=== PATIENT | male | born 1990 | race African-American/Black ===

== ENCOUNTER 2016-06-21 05:23 | Emergency (ER) | payer OTHER ==
[~2016-06-21] VITALS: Ht 170.2 cm; Wt 77.0 kg
[~2016-06-21 05:23] MED LIST: ZOFR4TAB3 PO
[2016-06-21 05:24] VITALS: BP 121/76; PULSE 78; RESP 16; TEMP 97.7; O2SAT 98
[2016-06-21] MEDS ORDERED: SODIUM CHLOR 0.9% 1000 ML INJ 1,000 ML IV SCH (05:43)
[2016-06-21] MEDS ORDERED: ONDANSETRON HCL 4 MG/2 ML VIAL IVP ONE (05:45)
[2016-06-21] MEDS ORDERED: SODIUM CHLORIDE 0.9% FLUSH 5 ML FLUSH IVF PRN (05:45)
[2016-06-21] MEDS ORDERED: FAMOTIDINE 20 MG/2 ML VIAL IV PUSH ONE (05:45)
[2016-06-21] MEDS ORDERED: SODIUM CHLOR 0.9% 1000 ML INJ 1,000 ML IV ONE (05:45)
[2016-06-21] MEDS ORDERED: DICYCLOMINE HCL 10 MG CAP PO ONE (05:45)
[2016-06-21] MEDS ORDERED: BENT20TA PO (05:50)
[2016-06-21] MEDS ORDERED: ZOFR4TAB3 SL (05:50)
--- NOTE | 2016-06-21 05:51 | PD ---
HPI Chief Complaint: GI Complaint Time Seen by Provider: 05:39 Travel History International Travel<30 days: No Contact w/Intl Traveler<30days: No Traveled to known affect area: No History of Present Illness HPI Patient's 26-year-old male who presents to emergency room with complaints of nausea and vomiting. Patient reports that he woke up tonight and felt sick, reports that he vomited multiple times tonight, reports that he has been vomiting every 15 minutes. Patient denies diarrhea although he did have a normal bowel movement prior to arrival to the emergency room. Patient reports that he thinks that he may have gotten sick from the pizza that he ate earlier tonight, reports that his 2 friends had the same pizza, reports that they are fine and are asymptomatic. Patient denies any abdominal pain. Patient denies any fever or chills. Patient with no other complaints. PFSH Past Medical History Medical History: Denies Significant Hx Diminished Hearing: No Influenza Vaccination: No Past Surgical History Surgical History: No Previous Surgery Family History Family History: Negative Social History Alcohol Use: Yes (occ) Tobacco Use: Yes (1 PPD) Substance Use: No Allergies-Medications (Allergen,Severity, Reaction): Coded Allergies: Amoxicillin (Verified Allergy, Severe, 06/21/16) Reported Meds & Prescriptions Reported Meds & Active Scripts Active Zofran Odt (Ondansetron Odt) 4 Mg Tab 4 Mg SL Q6HR PRN Bentyl (Dicyclomine HCl) 20 Mg Tab 20 Mg PO QID 14 Days Review of Systems General / Constitutional: No: Fever Eyes: No: Visual changes HENT: No: Headaches Cardiovascular: No: Chest Pain or Discomfort Respiratory: No: Shortness of Breath Gastrointestinal: Positive: Nausea, Vomiting, No: Abdominal Pain Genitourinary: No: Dysuria Musculoskeletal: No: Pain Skin: No Rash Neurologic: No: Weakness Psychiatric: No: Depression Endocrine: No: Polydipsia Hematologic/Lymphatic: No: Easy Bruising Physical Exam Narrative GENERAL: No acute distress, nontoxic SKIN: Warm and dry. HEAD: Atraumatic. Normocephalic. EYES: Pupils equal and round. No scleral icterus. No injection or drainage. ENT: No nasal bleeding or discharge. Mucous membranes pink and moist. NECK: Trachea midline. No JVD. CARDIOVASCULAR: Regular rate and rhythm. No murmur appreciated. RESPIRATORY: No accessory muscle use. Clear to auscultation. Breath sounds equal bilaterally. GASTROINTESTINAL: Abdomen soft, non-tender, nondistended. Hepatic and splenic margins not palpable. MUSCULOSKELETAL: No obvious deformities. No clubbing. No cyanosis. No edema. NEUROLOGICAL: Awake and alert. No obvious cranial nerve deficits. Motor grossly within normal limits. Normal speech. PSYCHIATRIC: Appropriate mood and affect; insight and judgment normal. Data Data Last Documented VS Vital Signs Date Time Temp Pulse Resp B/P Pulse Ox O2 Delivery O2 Flow Rate FiO2 06/21/16 05:24 97.7 78 16 121/76 98 Room Air Orders Complete Blood Count With Diff (06/21/16 05:43) Comprehensive Metabolic Panel (06/21/16 05:43) Iv Access Insert/Monitor (06/21/16 05:43) Ondansetron Inj (Zofran Inj) (06/21/16 05:45) Sodium Chlor 0.9% 1000 Ml Inj (Ns 1000 M (06/21/16 05:43) Sodium Chloride 0.9% Flush (Ns Flush) (06/21/16 05:45) Famotidine Inj (Pepcid Inj) (06/21/16 05:45) Dicyclomine (Bentyl) (06/21/16 05:45) Sodium Chlor 0.9% 1000 Ml Inj (Ns 1000 M (06/21/16 05:45) Ondansetron Inj (Zofran Inj) (06/21/16 05:57) Labs Laboratory Tests Test 06/21/16 06:00 White Blood Count 11.2 TH/MM3 Red Blood Count 4.77 MIL/MM3 Hemoglobin 14.4 GM/DL Hematocrit 42.5 % Mean Corpuscular Volume 89.2 FL Mean Corpuscular Hemoglobin 30.2 PG Mean Corpuscular Hemoglobin 33.9 % Concent Red Cell Distribution Width 14.1 % Platelet Count 320 TH/MM3 Mean Platelet Volume 7.6 FL Neutrophils (%) (Auto) 61.0 % Lymphocytes (%) (Auto) 27.4 % Monocytes (%) (Auto) 7.4 % Eosinophils (%) (Auto) 3.7 % Basophils (%) (Auto) 0.5 % Neutrophils # (Auto) 6.8 TH/MM3 Lymphocytes # (Auto) 3.1 TH/MM3 Monocytes # (Auto) 0.8 TH/MM3 Eosinophils # (Auto) 0.4 TH/MM3 Basophils # (Auto) 0.1 TH/MM3 CBC Comment DIFF FINAL Differential Comment Sodium Level 142 MEQ/L Potassium Level 4.0 MEQ/L Chloride Level 108 MEQ/L Carbon Dioxide Level 25.4 MEQ/L Anion Gap 9 MEQ/L Blood Urea Nitrogen 16 MG/DL Creatinine 1.02 MG/DL Estimat Glomerular Filtration 108 ML/MIN Rate Random Glucose 92 MG/DL Calcium Level 9.0 MG/DL Total Bilirubin 0.4 MG/DL Aspartate Amino Transf 38 U/L (AST/SGOT) Alanine Aminotransferase 49 U/L (ALT/SGPT) Alkaline Phosphatase 82 U/L Total Protein 8.0 GM/DL Albumin 4.3 GM/DL MDM Medical Decision Making Medical Screen Exam Complete: Yes Emergency Medical Condition: Yes Interpretation(s) Vital Signs Date Time Temp Pulse Resp B/P Pulse Ox O2 Delivery O2 Flow Rate FiO2 06/21/16 05:24 97.7 78 16 121/76 98 Room Air Differential Diagnosis Gastritis, gastroenteritis, electrolyte abnormality, acute cholecystitis Narrative Course Patient is a 26-year-old male who presents to emergency room with complaints of nausea and vomiting. Patient reports that he ate pizza for dinner earlier tonight, reports that he went to bed and woke up feeling nauseous. Patient reports that he has been vomiting every 15 minutes, reports that he is unable to keep any fluids at this time. Patient denies diarrhea. Patient denies abdominal pain. Patient here for evaluation of nausea and vomiting. On evaluation, patient with no abdominal pain, abdomen is soft, nontender, nondistended, no peritoneal signs. Vital signs stable IV ordered, CBC, CMP ordered for further evaluation of symptoms. 2 L IV fluid, IV Zofran as well as by mouth Bentyl order for symptomatic relief. Patient reevaluated, patient reports that he is feeling much better, patient with complete resolution symptoms at this time. Patient tolerating oral fluids at this time. Abdomen is soft, nontender, no peritoneal signs. Signs and symptoms of when to return to emergency room reviewed with patient. Diagnosis Primary Impression: Nausea & vomiting Qualified Code: R11.2 - Nausea and vomiting, intractability of vomiting not specified, unspecified vomiting type Patient Instructions: General Instructions Additional Instructions: Please return to ER as needed Please follow-up with your primary care doctor Eat a bland diet, make sure that you drink plenty of fluids and maintain hydration Med/Other Pt SpecificInfo: Prescription(s) given Scripts Ondansetron Odt (Zofran Odt)4 Mg Tab4 Mg SL Q6HR PRN (Nausea/Vomiting) #30 TAB Ref 0 Prov:Dilcia Ashley DO 06/21/16 Dicyclomine (Bentyl)20 Mg Tab20 Mg PO QID 14 Days Ref 0 Prov:Dilcia Ashley DO 06/21/16 Disposition: 01 DISCHARGE HOME Condition: Stable Dilcia Ashley DO Jun 21, 2016 05:51
[2016-06-21] MEDS ORDERED: ONDANSETRON HCL 4 MG/2 ML VIAL ONE (05:57)
[2016-06-21 06:14] LABS: AUTOMATED NEUTROPHIL # 6.8 TH/MM3 (1.8-7.7); BASOPHIL # 0.1 TH/MM3 (0-0.2); BASOPHIL % 0.5 % (0.0-2.0); EOSINOPHIL # 0.4 TH/MM3 (0-0.4); EOSINOPHIL % 3.7 % (0.0-4.0); HEMATOCRIT 42.5 % (39.0-51.0); HEMO FLAGS DIFF FINAL; LYMPH % 27.4 % (9.0-44.0); LYMPHOCYTE # 3.1 TH/MM3 (1.0-4.8); MEAN CELL VOLUME 89.2 FL (80.0-100.0); MEAN CORPUSCULAR HEMOGLOBIN 30.2 PG (27.0-34.0); MEAN CORPUSCULAR HGB CONC 33.9 % (32.0-36.0); MONO % 7.4 % (0.0-8.0); PLATELET COUNT 320 TH/MM3 (150-450); RED BLOOD COUNT 4.77 MIL/MM3 (4.50-5.90); RED CELL DISTRIBUTION WIDTH 14.1 % (11.6-17.2); WHITE BLOOD COUNT 11.2 TH/MM3 (4.0-11.0)
[2016-06-21 06:36] LABS: ALKALINE PHOSPHATASE 82 U/L (45-117); TOTAL BILIRUBIN ADULT 0.4 MG/DL (0.2-1.0)
[2016-06-21 06:41] LABS: ALT (GPT) 49 U/L (12-78); ANION GAP 9 MEQ/L (5-15); AST (GOT) 38 U/L (15-37); BICARBONATE 25.4 MEQ/L (21.0-32.0); BLOOD UREA NITROGEN 16 MG/DL (7-18); CHLORIDE 108 MEQ/L (98-107); GLOMERULAR FILTRATION RATE 108 ML/MIN (>89); SODIUM (NA) 142 MEQ/L (136-145)
[2016-06-21 06:57] VITALS: BP 132/82; PULSE 75; RESP 18; O2SAT 98
== END 2016-06-21 06:59 | disposition home or self-care (01) ==
LOC: NEPE 05:23
DX: R11.2 Nausea with vomiting, unspecified (principal); F17.210 Nicotine dependence, cigarettes, uncomplicated
CPT/HCPCS: 80053; 85025; 96361; 96374; 96375; 99284; J2405; J7030

== ENCOUNTER 2016-08-17 21:06 | Emergency (ER) | payer OTHER ==
[~2016-08-17 21:06] MED LIST changes: +BENT20TA PO; -ZOFR4TAB3 PO; +ZOFR4TAB3 SL
[2016-08-17 21:09] VITALS: BP 121/73; PULSE 74; RESP 16; TEMP 97.9; O2SAT 96
== END 2016-08-17 22:02 | disposition left against medical advice (07) ==
LOC: NED 21:06
DX: K08.9 Disorder of teeth and supporting structures, unspecified (principal)
CPT/HCPCS: 99281

== ENCOUNTER 2016-08-19 01:24 | Emergency (ER) | payer OTHER ==
[~2016-08-19] VITALS: Ht 167.6 cm; Wt 70.0 kg
[2016-08-19 01:25] VITALS: BP 122/66; PULSE 64; RESP 16; TEMP 97.6; O2SAT 97
--- NOTE | 2016-08-19 02:05 | PD ---
HPI Chief Complaint: Oral / Dental Pain or Problem Time Seen by Provider: 01:59 Travel History International Travel<30 days: No Contact w/Intl Traveler<30days: No Traveled to known affect area: No History of Present Illness HPI 26-year-old black male presents to emergency department with complaints of right upper maxillary dental pain. He states that this is been bothering him now for the last several days. He states the pain radiates around his maxilla to the front dentition. No trauma. No fever chills. He is taking Orajel and ibuprofen without relief. He denies any facial swelling. No difficulty swallowing. Pain is mild. Worse with cold. PFSH Past Medical History Medical History: Denies Significant Hx Diminished Hearing: No Tetanus Vaccination: < 5 Years Past Surgical History Surgical History: No Previous Surgery Social History Alcohol Use: Yes (occ) Tobacco Use: Yes (1 PPD) Substance Use: No Allergies-Medications (Allergen,Severity, Reaction): Coded Allergies: Amoxicillin (Verified Allergy, Severe, 06/21/16) Reported Meds & Prescriptions Reported Meds & Active Scripts Active Zofran Odt (Ondansetron Odt) 4 Mg Tab 4 Mg SL Q6HR PRN Bentyl (Dicyclomine HCl) 20 Mg Tab 20 Mg PO QID 14 Days Review of Systems Except as stated in HPI: all other systems reviewed are Neg Physical Exam Narrative GENERAL: Well-developed, well-nourished in no acute distress. Nontoxic appearing. HEAD: Normocephalic, atraumatic. EYES: Pupils equal round and reactive. Extraocular motions intact. No scleral icterus. No injection or drainage. ENT: TMs clear without erythema. The external auditory canals clear. Nose: clear . Posterior pharynx is pink and moist. No tonsillar edema or exudate. Uvula midline. Airway patent. I see no obvious dental carry in his right upper maxillary teeth. He does have a large dental carry in tooth #31. NECK: Trachea midline.Supple, nontender, moves head freely. No central bony tenderness or spasm. CARDIOVASCULAR: Regular rate and rhythm without murmurs, gallops, or rubs. RESPIRATORY: Clear to auscultation. Breath sounds equal bilaterally. No wheezes , rales, or rhonchi. GASTROINTESTINAL: Abdomen soft, non-tender, nondistended. No hepato-splenomegaly , or palpable masses. No guarding. EXTREMITIES: No clubbing, cyanosis, or edema. No joint tenderness, effusion, or edema noted. BACK: Nontender without deformity or crepitance. No flank tenderness. Data Data Last Documented VS Vital Signs Date Time Temp Pulse Resp B/P Pulse Ox O2 Delivery O2 Flow Rate FiO2 08/19/16 01:25 97.6 64 16 122/66 97 Room Air MDM Medical Decision Making Medical Screen Exam Complete: Yes Emergency Medical Condition: Yes Medical Record Reviewed: Yes Differential Diagnosis MDM: Moderate Differential diagnoses: Dental abscess, dental caries, osteitis, cellulitis Narrative Course This is dentalgia Patient given clindamycin 300 mg by mouth. Diagnosis Primary Impression: Dentalgia Patient Instructions: General Instructions Additional Instructions: Rest. [place] gargles. [place] oil on cotton balls. 3 Advil every 6 hours. Clindamycin follow-up with a dentist as soon as possible. And return to the ER if any problems. Med/Other Pt SpecificInfo: Prescription(s) given Disposition: 01 DISCHARGE HOME Condition: Stable Ricardo Lackey Aug 19, 2016 02:05
[2016-08-19] MEDS ORDERED: CLIN150 PO (02:06)
[2016-08-19] MEDS ORDERED: CLINDAMYCIN 150 MG CAP PO ONE (02:15)
== END 2016-08-19 02:24 | disposition home or self-care (01) ==
LOC: NEPB 01:24
DX: K08.89 Other specified disorders of teeth and supporting structures (principal); F17.210 Nicotine dependence, cigarettes, uncomplicated
CPT/HCPCS: 99282

== ENCOUNTER 2016-10-03 15:21 | Emergency (ER) | payer OTHER ==
[~2016-10-03] VITALS: Ht 172.7 cm; Wt 72.7 kg
[~2016-10-03 15:21] MED LIST changes: +CLIN150 PO
[2016-10-03 15:22] VITALS: BP 130/86; PULSE 76; RESP 24; TEMP 97.7; O2SAT 99
--- NOTE | 2016-10-03 15:45 | PD ---
Physical Exam Date Seen by Provider: Oct 03, 2016 Time Seen by Provider: 15:42 Narrative 26 y/o male presents with epigastric pain and nausea/vomiting with blood noted in emesis. Pain is 8/10. Denies ETOH. Recently was taking large amounts Ibuprofen for tooth problem up to last week. Denies fever or urinary symp[toms. V/S Stable Waiting bed placement. Data Data Last Documented VS Vital Signs Date Time Temp Pulse Resp B/P Pulse Ox O2 Delivery O2 Flow Rate FiO2 10/03/16 15:22 97.7 76 24 130/86 99 Room Air [facility] Medical Record Reviewed: Yes Supervised Visit with AGUSTINA: Yes Condition: Stable Ryan Hung Oct 03, 2016 15:45
[2016-10-03] MEDS ORDERED: SODIUM CHLOR 0.9% 1000 ML INJ 1,000 ML IV SCH (15:50)
--- NOTE | 2016-10-03 15:58 | PD ---
HPI Chief Complaint: Abdominal Pain Time Seen by Provider: 15:46 Travel History International Travel<30 days: No Contact w/Intl Traveler<30days: No Traveled to known affect area: No History of Present Illness HPI patient 26-year-old male presents emergency department with nausea vomiting in the epigastric region. Patient states she's had a toothache recently is been taking a lot of ibuprofen. Patient became alarmed when he started seeing that his emesis now started to have some blood streaking in it. He denies any history of alcohol drug abuse. He does state that he is a smoker. States never happened him before. He does have some sharp epigastric pain which is waxing and waning states is very bad when he throws up. PFSH Past Medical History Diminished Hearing: No Social History Alcohol Use: Yes (occ) Tobacco Use: Yes (1 PPD) Substance Use: No Allergies-Medications (Allergen,Severity, Reaction): Coded Allergies: Amoxicillin (Verified Allergy, Severe, 10/03/16) Reported Meds & Prescriptions Reported Meds & Active Scripts Active Zofran Odt (Ondansetron Odt) 4 Mg Tab 4 Mg SL Q6HR PRN Phenergan (Promethazine HCl) 25 Mg Tab 25 Mg PO Q6H PRN Protonix (Pantoprazole Sodium) 40 Mg Tab 40 Mg PO DAILY Review of Systems Except as stated in HPI: all other systems reviewed are Neg Physical Exam Narrative GENERAL: Well-developed well-nourished, appears uncomfortable. SKIN: Warm and dry. HEAD: Atraumatic. Normocephalic. EYES: Pupils equal and round. No scleral icterus. No injection or drainage. ENT: No nasal bleeding or discharge. Mucous membranes pink and moist. NECK: Trachea midline. No JVD. CARDIOVASCULAR: Regular rate and rhythm. RESPIRATORY: No accessory muscle use. Clear to auscultation. Breath sounds equal bilaterally. GASTROINTESTINAL: Abdomen soft, minimally tender in the epigastric region, nondistended. Hepatic and splenic margins not palpable. Voluntary guarding without involuntary guarding. No percussive tenderness. Normal active bowel sounds. MUSCULOSKELETAL: Extremities without clubbing, cyanosis, or edema. No obvious deformities. NEUROLOGICAL: Awake and alert. No obvious cranial nerve deficits. Motor grossly within normal limits. Five out of 5 muscle strength in the arms and legs. Normal speech. PSYCHIATRIC: Appropriate mood and affect; insight and judgment normal. Data Data Last Documented VS Vital Signs Date Time Temp Pulse Resp B/P Pulse Ox O2 Delivery O2 Flow Rate FiO2 10/03/16 16:13 99 10/03/16 15:22 97.7 76 24 130/86 Room Air Orders Complete Blood Count With Diff (10/03/16 15:50) Comprehensive Metabolic Panel (10/03/16 15:50) Lipase (10/03/16 15:50) Prothrombin Time / Inr (Pt) (10/03/16 15:50) Act Partial Throm Time (Ptt) (10/03/16 15:50) Ct Abd/Pel W Iv Contrast(Rout) (10/03/16 15:50) Iv Access Insert/Monitor (10/03/16 15:50) Ecg Monitoring (10/03/16 15:50) Oximetry (10/03/16 15:50) Morphine Inj (Morphine Inj) (10/03/16 16:00) Ondansetron Inj (Zofran Inj) (10/03/16 16:00) Sodium Chlor 0.9% 1000 Ml Inj (Ns 1000 M (10/03/16 15:50) Sodium Chloride 0.9% Flush (Ns Flush) (10/03/16 16:00) Iohexol 350 Inj (Omnipaque 350 Inj) (10/03/16 16:31) Pantoprazole Inj (Protonix Inj) (10/03/16 17:00) Metoclopramide Inj (Reglan Inj) (10/03/16 17:00) Labs Laboratory Tests Test 10/03/16 16:00 White Blood Count 10.7 TH/MM3 Red Blood Count 4.89 MIL/MM3 Hemoglobin 14.7 GM/DL Hematocrit 43.0 % Mean Corpuscular Volume 87.9 FL Mean Corpuscular Hemoglobin 30.2 PG Mean Corpuscular Hemoglobin 34.3 % Concent Red Cell Distribution Width 14.1 % Platelet Count 362 TH/MM3 Mean Platelet Volume 7.5 FL Neutrophils (%) (Auto) 68.8 % Lymphocytes (%) (Auto) 25.2 % Monocytes (%) (Auto) 4.9 % Eosinophils (%) (Auto) 0.8 % Basophils (%) (Auto) 0.3 % Neutrophils # (Auto) 7.4 TH/MM3 Lymphocytes # (Auto) 2.7 TH/MM3 Monocytes # (Auto) 0.5 TH/MM3 Eosinophils # (Auto) 0.1 TH/MM3 Basophils # (Auto) 0.0 TH/MM3 CBC Comment DIFF FINAL Differential Comment Prothrombin Time 11.4 SEC Prothromb Time International 1.0 RATIO Ratio Activated Partial 23.8 SEC Thromboplast Time Sodium Level 143 MEQ/L Potassium Level 4.1 MEQ/L Chloride Level 106 MEQ/L Carbon Dioxide Level 22.7 MEQ/L Anion Gap 14 MEQ/L Blood Urea Nitrogen 15 MG/DL Creatinine 1.05 MG/DL Estimat Glomerular Filtration 104 ML/MIN Rate Random Glucose 79 MG/DL Calcium Level 9.8 MG/DL Total Bilirubin 0.5 MG/DL Aspartate Amino Transf 29 U/L (AST/SGOT) Alanine Aminotransferase 43 U/L (ALT/SGPT) Alkaline Phosphatase 73 U/L Total Protein 8.4 GM/DL Albumin 4.7 GM/DL Lipase 121 U/L [facility] Medical Decision Making Medical Screen Exam Complete: Yes Emergency Medical Condition: Yes Differential Diagnosis NSAID gastritis, Dana-Johnson tear, esophageal bleeding unlikely, gastritis, gastroenteritis. Narrative Course Patient roomed in the emergency department, 20-gauge right before meals was started by myself returned nonpulsatile dark red blood. Patient was given fluids Zofran ultimately some Reglan as well as protonic's. Patient states he was feeling much better after these interventions. Discussed with him needs to cut back on the amount of ibuprofen he is taking. Discussed if his symptoms are not improving he needs to follow up with expediter in his primary care physician. He states he is no longer taking ibuprofen as his teeth are no longer hurting him. His labs are reassuring and he is stable for discharge. Diagnosis Primary Impression: Epigastric pain Additional Impression: Gastritis due to nonsteroidal anti-inflammatory drug Referrals: Cammy Salazar MD Med/Other Pt SpecificInfo: Prescription(s) given Scripts Ondansetron Odt (Zofran Odt)4 Mg Tab4 Mg SL Q6HR PRN (Nausea/Vomiting) #30 TAB Ref 0 Prov:Devaughn Guzman MD 10/03/16 Promethazine (Phenergan)25 Mg Tab25 Mg PO Q6H PRN (Nausea/Vomiting) #20 TAB Ref 0 Prov:Devaughn Guzman MD 4/22/17 Pantoprazole (Protonix)40 Mg Tab40 Mg PO DAILY #30 TAB Ref 0 Prov:Devaughn Guzman MD 10/03/16 Disposition: 01 DISCHARGE HOME Condition: Stable Devaughn Guzman MD Oct 03, 2016 15:58
[2016-10-03] MEDS ORDERED: SODIUM CHLORIDE 0.9% FLUSH 10 ML FLUSH IV FLUSH PRN (16:00)
[2016-10-03] MEDS ORDERED: ONDANSETRON HCL 4 MG/2 ML VIAL IVP ONE (16:00)
[2016-10-03] MEDS ORDERED: MORPHINE SULFATE 4 MG/ML INJ IV PUSH ONE (16:00)
[2016-10-03 16:13] VITALS: O2SAT 99
[2016-10-03] MEDS ORDERED: IOHEXOL 350 MG/ML 10 ML VIAL (for RAD DIAG) IV ONE (16:31)
[2016-10-03 16:38] LABS: AUTOMATED NEUTROPHIL # 7.4 TH/MM3 (1.8-7.7); BASOPHIL % 0.3 % (0.0-2.0); EOSINOPHIL # 0.1 TH/MM3 (0-0.4); EOSINOPHIL % 0.8 % (0.0-4.0); HEMO FLAGS DIFF FINAL; LYMPH % 25.2 % (9.0-44.0); LYMPHOCYTE # 2.7 TH/MM3 (1.0-4.8); MEAN CELL VOLUME 87.9 FL (80.0-100.0); MEAN CORPUSCULAR HEMOGLOBIN 30.2 PG (27.0-34.0); MEAN CORPUSCULAR HGB CONC 34.3 % (32.0-36.0); MONO % 4.9 % (0.0-8.0); NEUT % 68.8 % (16.0-70.0); PLATELET COUNT 362 TH/MM3 (150-450); RED BLOOD COUNT 4.89 MIL/MM3 (4.50-5.90); RED CELL DISTRIBUTION WIDTH 14.1 % (11.6-17.2); WHITE BLOOD COUNT 10.7 TH/MM3 (4.0-11.0)
[2016-10-03 16:47] LABS: APTT (PATIENT) 23.8 SEC (24.3-30.1); PROTHROMBIN TIME - PATIENT 11.4 SEC (9.8-11.6)
--- NOTE | 2016-10-03 16:47 | RADRPT ---
EXAM DATE/TIME: 10/03/2016 16:20 [place] COMPARISON: No previous studies available for comparison. INDICATIONS : Abdomen pain. IV CONTRAST: 100 cc Omnipaque 350 (iohexol) IV ORAL CONTRAST: No oral contrast ingested. RADIATION DOSE: 9.96 CTDIvol (mGy) MEDICAL HISTORY : None SURGICAL HISTORY : None. ENCOUNTER: Initial ACUITY: 1 day PAIN SCALE: 5/10 LOCATION: Bilateral abdomen. TECHNIQUE: Volumetric scanning of the abdomen and pelvis was performed. Using automated exposure control and ad justment of the mA and/or kV according to patient size, radiation dose was kept as low as reasonably achievable to obtain optimal diagnostic quality images. FINDINGS: LOWER LUNGS: The visualized lower lungs are clear. LIVER: Homogeneous density without lesion. There is no dilation of the biliary tree. No calcified gallston es. SPLEEN: Normal size without lesion. PANCREAS: Within normal limits. KIDNEYS: Normal in size and shape. There is no mass, stone or hydronephrosis. ADRENAL GLANDS: Within normal limits. VASCULAR: There is no aortic aneurysm. BOWEL/MESENTERY: The stomach, small bowel, and colon demonstrate no acute abnormality. There is no free intraperitone al air or fluid. ABDOMINAL WALL: Within normal limits. RETROPERITONEUM: There is no lymphadenopathy. BLADDER: No wall thickening or mass. REPRODUCTIVE: Within normal limits. INGUINAL: There is no lymphadenopathy or hernia. MUSCULOSKELETAL: Within normal limits for patient age. CONCLUSION: Negative CT abdomen/pelvis with contrast. Antonio Lewis MD on October 03, 2016 at 16:44 Board Certified Radiologist. This report was verified electronically.
[2016-10-03] MEDS ORDERED: PANTOPRAZOLE SODIUM 40 MG VIAL IV PUSH ONE (17:00)
[2016-10-03] MEDS ORDERED: METOCLOPRAMIDE HCL 10 MG/2 ML VIAL IV PUSH ONE (17:00)
[2016-10-03 18:00] LABS: ALKALINE PHOSPHATASE 73 U/L (45-117); ALT (GPT) 43 U/L (12-78); ANION GAP 14 MEQ/L (5-15); AST (GOT) 29 U/L (15-37); BICARBONATE 22.7 MEQ/L (21.0-32.0); BLOOD UREA NITROGEN 15 MG/DL (7-18); CHLORIDE 106 MEQ/L (98-107); GLOMERULAR FILTRATION RATE 104 ML/MIN (>89); POTASSIUM 4.1 MEQ/L (3.5-5.1); SODIUM (NA) 143 MEQ/L (136-145); TOTAL BILIRUBIN ADULT 0.5 MG/DL (0.2-1.0)
[2016-10-03] MEDS ORDERED: PROT40TA PO (18:07)
[2016-10-03] MEDS ORDERED: ZOFR4TAB3 SL (18:07)
[2016-10-03] MEDS ORDERED: PROM25TA5 PO (18:07)
== END 2016-10-03 18:57 | disposition home or self-care (01) ==
LOC: NEPD 15:21
DX: K29.70 Gastritis, unspecified, without bleeding (principal); T39.395A Adverse effect of other nonsteroidal anti-inflammatory drugs [NSAID], initial encounter; F17.210 Nicotine dependence, cigarettes, uncomplicated
CPT/HCPCS: 74177; 80053; 83690; 85025; 85610; 85730; 96374; 96375; 99284; C9113; J2270; J2405; J2765; J7030; Q9967

== ENCOUNTER 2017-01-31 12:56 | Emergency (ER) | payer OTHER ==
[~2017-01-31] VITALS: Ht 172.7 cm; Wt 69.5 kg
[~2017-01-31 12:56] MED LIST changes: -BENT20TA PO; -CLIN150 PO; +PROM25TA5 PO; +PROT40TA PO
[2017-01-31 12:58] VITALS: BP 136/86; PULSE 96; RESP 15; TEMP 98.4; O2SAT 98
--- NOTE | 2017-01-31 13:30 | PD ---
HPI Chief Complaint: GI Complaint Time Seen by Provider: 13:30 Travel History International Travel<30 days: No Contact w/Intl Traveler<30days: No Traveled to known affect area: No History of Present Illness HPI 26-year-old Tog[place] male presents to the department with intractable vomiting since 9 PM last evening. Patient states he ate a [place] restaurant yesterday for lunch maybe ate something that wasn't so good. Patient denies fever, chills, or significant pain in his abdomen or back. He has decreased urine output but no urine dysuria or discoloration. He denies diarrhea. He has no upper respiratory symptoms, chest pain, or shortness of breath. He has allergic to amoxicillin. PFSH Past Medical History Diminished Hearing: No Social History Alcohol Use: Yes (occ) Tobacco Use: Yes (1 PPD) Substance Use: No Allergies-Medications (Allergen,Severity, Reaction): Coded Allergies: amoxicillin (Unverified Allergy, Severe, 01/27/17) Reported Meds & Prescriptions Reported Meds & Active Scripts Active Zofran Odt (Ondansetron Odt) 4 Mg Tab 4 Mg SL Q6HR PRN Phenergan (Promethazine HCl) 25 Mg Tab 25 Mg PO Q6H PRN Protonix (Pantoprazole Sodium) 40 Mg Tab 40 Mg PO DAILY Review of Systems Except as stated in HPI: all other systems reviewed are Neg General / Constitutional: No: Fever, Chills Eyes: No: Visual changes HENT: No: Headaches Cardiovascular: No: Chest Pain or Discomfort Respiratory: No: Shortness of Breath Gastrointestinal: Positive: Nausea, Vomiting, No: Diarrhea, Abdominal Pain Genitourinary: Positive: Decreased Urinary Output, No: Dysuria Musculoskeletal: No: Pain Skin: No Rash Neurologic: No: Weakness Psychiatric: No: Depression Endocrine: No: Polydipsia Hematologic/Lymphatic: No: Easy Bruising Physical Exam Narrative GENERAL: He appears mildly ill but not septic. SKIN: Warm and dry. Mild decreased pallor. Normal turgor. HEAD: Atraumatic. Normocephalic. EYES: Pupils equal and round. No scleral icterus. No injection or drainage. ENT: No nasal bleeding or discharge. Mucous membranes pink and moist. Pharynx appears normal. Airway is patent. NECK: Trachea midline. Supple. CARDIOVASCULAR: Regular rate and rhythm. RESPIRATORY: No accessory muscle use. Clear to auscultation. Breath sounds equal bilaterally. GASTROINTESTINAL: Abdomen soft, non-tender, nondistended. Normal bowel sounds are present in all quadrants. Hepatic and splenic margins not palpable. No CVA tenderness. MUSCULOSKELETAL: Extremities without clubbing, cyanosis, or edema. No obvious deformities. NEUROLOGICAL: Awake and alert. No obvious cranial nerve deficits. Motor grossly within normal limits. Five out of 5 muscle strength in the arms and legs. Normal speech. PSYCHIATRIC: Appropriate mood and affect; insight and judgment normal. Data Data Last Documented VS Vital Signs Date Time Temp Pulse Resp B/P (MAP) Pulse Ox O2 Delivery O2 Flow Rate FiO2 01/31/17 13:52 18 01/31/17 13:52 98 Room Air 01/31/17 12:58 98.4 96 Orders Orders Complete Blood Count With Diff (01/31/17 13:34) Comprehensive Metabolic Panel (01/31/17 13:34) Lipase (01/31/17 13:34) Iv Access Insert/Monitor (01/31/17 13:34) Ecg Monitoring (01/31/17 13:34) Oximetry (01/31/17 13:34) NPO (01/31/17 13:34) Ondansetron Inj (Zofran Inj) (01/31/17 13:45) Sodium Chlor 0.9% 1000 Ml Inj (Ns 1000 M (01/31/17 13:34) Sodium Chloride 0.9% Flush (Ns Flush) (01/31/17 13:45) Labs Laboratory Tests Test 01/31/17 13:50 White Blood Count 9.1 TH/MM3 Red Blood Count 4.83 MIL/MM3 Hemoglobin 14.7 GM/DL Hematocrit 43.9 % Mean Corpuscular Volume 91.0 FL Mean Corpuscular Hemoglobin 30.4 PG Mean Corpuscular Hemoglobin Concent 33.5 % Red Cell Distribution Width 13.3 % Platelet Count 301 TH/MM3 Mean Platelet Volume 7.2 FL Neutrophils (%) (Auto) 79.8 % Lymphocytes (%) (Auto) 16.9 % Monocytes (%) (Auto) 2.7 % Eosinophils (%) (Auto) 0.2 % Basophils (%) (Auto) 0.4 % Neutrophils # (Auto) 7.3 TH/MM3 Lymphocytes # (Auto) 1.5 TH/MM3 Monocytes # (Auto) 0.2 TH/MM3 Eosinophils # (Auto) 0.0 TH/MM3 Basophils # (Auto) 0.0 TH/MM3 CBC Comment DIFF FINAL Differential Comment Blood Urea Nitrogen 14 MG/DL Creatinine 0.88 MG/DL Random Glucose 93 MG/DL Total Protein 8.3 GM/DL Albumin 4.5 GM/DL Calcium Level 8.8 MG/DL Alkaline Phosphatase 61 U/L Aspartate Amino Transf (AST/SGOT) 26 U/L Alanine Aminotransferase (ALT/SGPT) 41 U/L Total Bilirubin 0.5 MG/DL Sodium Level 138 MEQ/L Potassium Level 4.1 MEQ/L Chloride Level 106 MEQ/L Carbon Dioxide Level 25.2 MEQ/L Anion Gap 7 MEQ/L Estimat Glomerular Filtration Rate 128 ML/MIN Lipase 230 U/L MDM Medical Decision Making Medical Screen Exam Complete: Yes Emergency Medical Condition: Yes Differential Diagnosis Acute gastroenteritis. Nausea. Vomiting. Dehydration. Narrative Course Patient's medically stable at time of exam. Labs ordered include CBC, CMP and lipase. IV access is obtained patient is given 4 mg Zofran IV as well as 1000 mL's normal saline bolus. Labs are all within normal limits. Patient felt much improved after the IV fluids and Zofran. Patient was discharged home with Zofran 4 mg every 6 hours when necessary #12. Patient is to rest and push fluids for the next 24 hours and follow-up as needed Diagnosis Primary Impression: Nausea & vomiting Qualified Codes: R11.14 - Bilious vomiting Additional Impression: Gastroenteritis due to food toxin Referrals: [facility] Patient Instructions: General Instructions Additional Instructions: Labs are all within normal limits. Patient felt much improved after the IV fluids and Zofran. Patient was discharged home with Zofran 4 mg every 6 hours when necessary #12. Patient is to rest and push fluids for the next 24 hours and follow-up as needed Med/Other Pt SpecificInfo: Prescription(s) given Disposition: DISCHARGE HOME Condition: Stable Ryan Hung Jan 31, 2017 13:30
[2017-01-31] MEDS ORDERED: SODIUM CHLOR 0.9% 1000 ML INJ 1,000 ML IV SCH (13:34)
[2017-01-31] MEDS ORDERED: SODIUM CHLORIDE 0.9% FLUSH 10 ML FLUSH IV FLUSH PRN (13:45)
[2017-01-31] MEDS ORDERED: ONDANSETRON HCL 4 MG/2 ML VIAL IVP ONE (13:45)
[2017-01-31 13:52] VITALS: RESP 18; O2SAT 98
[2017-01-31 14:05] LABS: AUTOMATED NEUTROPHIL # 7.3 TH/MM3 (1.8-7.7); BASOPHIL % 0.4 % (0.0-2.0); EOSINOPHIL % 0.2 % (0.0-4.0); HEMATOCRIT 43.9 % (39.0-51.0); HEMO FLAGS DIFF FINAL; LYMPH % 16.9 % (9.0-44.0); LYMPHOCYTE # 1.5 TH/MM3 (1.0-4.8); MEAN CORPUSCULAR HEMOGLOBIN 30.4 PG (27.0-34.0); MEAN CORPUSCULAR HGB CONC 33.5 % (32.0-36.0); MONO % 2.7 % (0.0-8.0); NEUT % 79.8 % (16.0-70.0); PLATELET COUNT 301 TH/MM3 (150-450); RED BLOOD COUNT 4.83 MIL/MM3 (4.50-5.90); RED CELL DISTRIBUTION WIDTH 13.3 % (11.6-17.2); WHITE BLOOD COUNT 9.1 TH/MM3 (4.0-11.0)
[2017-01-31 14:22] LABS: ALKALINE PHOSPHATASE 61 U/L (45-117); TOTAL BILIRUBIN ADULT 0.5 MG/DL (0.2-1.0)
[2017-01-31 14:24] LABS: ALT (GPT) 41 U/L (12-78); ANION GAP 7 MEQ/L (5-15); AST (GOT) 26 U/L (15-37); BICARBONATE 25.2 MEQ/L (21.0-32.0); BLOOD UREA NITROGEN 14 MG/DL (7-18); CHLORIDE 106 MEQ/L (98-107); GLOMERULAR FILTRATION RATE 128 ML/MIN (>89); SODIUM (NA) 138 MEQ/L (136-145)
[2017-01-31 14:25] LABS: POTASSIUM 4.1 MEQ/L (3.5-5.1)
[2017-01-31] MEDS ORDERED: ZOFR4TAB PO (14:43)
== END 2017-01-31 14:52 | disposition home or self-care (01) ==
LOC: NEPD 12:56
DX: A05.9 Bacterial foodborne intoxication, unspecified (principal); R11.14 Bilious vomiting; F17.290 Nicotine dependence, other tobacco product, uncomplicated
CPT/HCPCS: 80053; 83690; 85025; 96374; 99284; J2405; J7030

== ENCOUNTER 2017-05-30 10:00 | Emergency (ER) | payer SELFPAY ==
[~2017-05-30] VITALS: Ht 170.2 cm; Wt 72.5 kg
[~2017-05-30 10:00] MED LIST changes: +ZOFR4TAB PO
[2017-05-30 10:01] VITALS: BP 140/85; PULSE 78; RESP 16; TEMP 98.5; O2SAT 98
[2017-05-30] MEDS ORDERED: SODIUM CHLOR 0.9% 1000 ML INJ 1,000 ML IV SCH (10:43)
[2017-05-30] MEDS ORDERED: SODIUM CHLORIDE 0.9% FLUSH 10 ML FLUSH IV FLUSH PRN (10:45)
[2017-05-30] MEDS ORDERED: ONDANSETRON HCL 4 MG/2 ML VIAL IVP ONE (10:45)
--- NOTE | 2017-05-30 11:14 | PD ---
HPI Chief Complaint: Abdominal Pain Time Seen by Provider: 11:11 Travel History International Travel<30 days: No Contact w/Intl Traveler<30days: No Traveled to known affect area: No History of Present Illness HPI 27 year old male presents to the emergency department for evaluation nausea and vomiting that started around 11:30 to midnight last night. He reports over 30 episodes of vomiting, is now dry heaving. Patient has been here several times in the past for nausea and vomiting upon review of chart. He does admit to smoking marijuana, but states he is not smoking very frequently anymore. Patient denies any fevers or chills. No chest pain or shortness of breath. No abdominal pain. No diarrhea or constipation. Patient reports no chronic medical problems and takes no prescribed medications. Patient denies any pain. Moderate severity. No exacerbating or alleviating factors. No associated symptoms. PFSH Past Medical History Medical History: Denies Significant Hx Diminished Hearing: No Gastrointestinal Disorders: Yes (gastritis ) GERD: Yes Immunizations Current: Yes Tetanus Vaccination: < 5 Years Influenza Vaccination: No Past Surgical History Surgical History: No Previous Surgery Social History Alcohol Use: Yes (occ) Tobacco Use: Yes (1 PPD) Substance Use: Yes (THC frequently) Allergies-Medications (Allergen,Severity, Reaction): Coded Allergies: amoxicillin (Unverified Allergy, Severe, 05/30/17) Reported Meds & Prescriptions Reported Meds & Active Scripts Active Review of Systems Except as stated in HPI: all other systems reviewed are Neg Physical Exam Narrative GENERAL: Well-nourished, well-developed male patient, afebrile. SKIN: Focused skin assessment warm/dry. HEAD: Normocephalic. Atraumatic. ENT: Mucosa pink and moist. No erythema or exudates. No uvular edema. No uvular , palatal, or tonsillar deviation. Airway patent. Nasal turbinates appear normal without nasal blood, purulent drainage or septal hematoma. Bilateral tympanic membranes are clear without erythema or perforation. EYES: No scleral icterus. No injection or drainage. NECK: Supple, trachea midline. No JVD or lymphadenopathy. CARDIOVASCULAR: Regular rate and rhythm without murmurs, gallops, or rubs. RESPIRATORY: Breath sounds equal bilaterally. No accessory muscle use. Lungs sounds are clear to auscultation. GASTROINTESTINAL: Abdomen soft, non-tender, nondistended. No abdominal pain to palpation. MUSCULOSKELETAL: No cyanosis, or edema. BACK: Nontender without obvious deformity. No CVA tenderness. Data Data Last Documented VS Vital Signs Date Time Temp Pulse Resp B/P (MAP) Pulse Ox O2 Delivery O2 Flow Rate FiO2 05/30/17 10:01 98.5 78 16 140/85 (103) 98 Orders Orders Complete Blood Count With Diff (05/30/17 10:43) Comprehensive Metabolic Panel (05/30/17 10:43) Lipase (05/30/17 10:43) Iv Access Insert/Monitor (05/30/17 10:43) Ecg Monitoring (05/30/17 10:43) Oximetry (05/30/17 10:43) Ondansetron Inj (Zofran Inj) (05/30/17 10:45) Sodium Chlor 0.9% 1000 Ml Inj (Ns 1000 M (05/30/17 10:43) Sodium Chloride 0.9% Flush (Ns Flush) (05/30/17 10:45) Metoclopramide Inj (Reglan Inj) (05/30/17 11:15) Labs Laboratory Tests Test 05/30/17 10:23 White Blood Count 6.6 TH/MM3 Red Blood Count 4.78 MIL/MM3 Hemoglobin 14.6 GM/DL Hematocrit 43.4 % Mean Corpuscular Volume 90.9 FL Mean Corpuscular Hemoglobin 30.6 PG Mean Corpuscular Hemoglobin Concent 33.7 % Red Cell Distribution Width 13.6 % Platelet Count 323 TH/MM3 Mean Platelet Volume 7.1 FL Neutrophils (%) (Auto) 46.5 % Lymphocytes (%) (Auto) 46.1 % Monocytes (%) (Auto) 5.3 % Eosinophils (%) (Auto) 1.5 % Basophils (%) (Auto) 0.6 % Neutrophils # (Auto) 3.1 TH/MM3 Lymphocytes # (Auto) 3.0 TH/MM3 Monocytes # (Auto) 0.3 TH/MM3 Eosinophils # (Auto) 0.1 TH/MM3 Basophils # (Auto) 0.0 TH/MM3 CBC Comment DIFF FINAL Differential Comment Blood Urea Nitrogen 13 MG/DL Creatinine 0.96 MG/DL Random Glucose 82 MG/DL Total Protein 8.3 GM/DL Albumin 4.5 GM/DL Calcium Level 9.2 MG/DL Alkaline Phosphatase 69 U/L Aspartate Amino Transf (AST/SGOT) 25 U/L Alanine Aminotransferase (ALT/SGPT) 46 U/L Total Bilirubin 0.3 MG/DL Sodium Level 140 MEQ/L Potassium Level 4.3 MEQ/L Chloride Level 109 MEQ/L Carbon Dioxide Level 23.1 MEQ/L Anion Gap 8 MEQ/L Estimat Glomerular Filtration Rate 115 ML/MIN Lipase 256 U/L MDM Medical Decision Making Medical Screen Exam Complete: Yes Emergency Medical Condition: Yes Medical Record Reviewed: Yes Differential Diagnosis Cannabis hyperemesis syndrome versus Cyclical vomiting syndrome versus gastroenteritis versus electrolyte abnormality versus dehydration Narrative Course 27-year-old male presents to the emergency department for evaluation of nausea and vomiting that started last night approximately 12 hours ago. CBC, CMP, lipase are ordered and pending. Patient is given normal saline 1 L IV bolus, Zofran 4 mg IV prior to me seeing the patient. He states he felt better shortly after receiving Zofran, but is feeling nauseated again. Patient is given Reglan 10 mg IV. CBC is unremarkable. CMP shows no acute abnormality. Lipase is 256. Upon reexamination, patient states he feels much better. He would like to go home. I did instruct him that vomiting was most likely due to marijuana use. I instructed him to stop smoking marijuana which he agrees to. The patient was discharged in stable condition with instructions, including return instructions and follow up instructions. Diagnosis Primary Impression: Cannabis hyperemesis syndrome concurrent with and due to cannabis abuse Referrals: Primary Care Physician call for appointment Patient Instructions: Acute Nausea and Vomiting (ED), General Instructions Additional Instructions: Take Zofran as directed as needed for nausea/vomiting. Stop smoking marijuana as this most likely the source of vomiting. Follow-up with your primary care physician. Return to the emergency department for any acute worsening of symptoms. Med/Other Pt SpecificInfo: Prescription(s) given Scripts Ondansetron Odt (Ondansetron Odt) 4 Mg Tab 4 MG SL Q6HR Y for Nausea/Vomiting, #16 TAB 0 Refills Prov: Nicole Sood 05/30/17 Disposition: 01 DISCHARGE HOME Condition: Stable Nicole Sood May 30, 2017 11:14
[2017-05-30] MEDS ORDERED: METOCLOPRAMIDE HCL 10 MG/2 ML VIAL IV PUSH ONE (11:15)
[2017-05-30 11:49] LABS: AUTOMATED NEUTROPHIL # 3.1 TH/MM3 (1.8-7.7); BASOPHIL % 0.6 % (0.0-2.0); EOSINOPHIL # 0.1 TH/MM3 (0-0.4); EOSINOPHIL % 1.5 % (0.0-4.0); HEMATOCRIT 43.4 % (39.0-51.0); HEMOGLOBIN 14.6 GM/DL (13.0-17.0); LYMPH % 46.1 % (9.0-44.0); MEAN CELL VOLUME 90.9 FL (80.0-100.0); MEAN CORPUSCULAR HEMOGLOBIN 30.6 PG (27.0-34.0); MEAN CORPUSCULAR HGB CONC 33.7 % (32.0-36.0); MEAN PLATELET VOLUME 7.1 FL (7.0-11.0); MONO % 5.3 % (0.0-8.0); MONOCYTE # 0.3 TH/MM3 (0-0.9); NEUT % 46.5 % (16.0-70.0); PLATELET COUNT 323 TH/MM3 (150-450); RED BLOOD COUNT 4.78 MIL/MM3 (4.50-5.90); RED CELL DISTRIBUTION WIDTH 13.6 % (11.6-17.2); WHITE BLOOD COUNT 6.6 TH/MM3 (4.0-11.0)
[2017-05-30 12:10] LABS: ALBUMIN 4.5 GM/DL (3.4-5.0); ALKALINE PHOSPHATASE 69 U/L (45-117); ALT (GPT) 46 U/L (12-78); AST (GOT) 25 U/L (15-37); BICARBONATE 23.1 MEQ/L (21.0-32.0); BLOOD UREA NITROGEN 13 MG/DL (7-18); CALCIUM 9.2 MG/DL (8.5-10.1); CHLORIDE 109 MEQ/L (98-107); CREATININE 0.96 MG/DL (0.60-1.30); GLOMERULAR FILTRATION RATE 115 ML/MIN (>89); GLUCOSE,RANDOM 82 MG/DL (74-106); LIPASE 256 U/L (73-393); SODIUM (NA) 140 MEQ/L (136-145); TOTAL BILIRUBIN ADULT 0.3 MG/DL (0.2-1.0); TOTAL PROTEIN 8.3 GM/DL (6.4-8.2)
[2017-05-30] MEDS ORDERED: ONDA4TAB7 SL (12:33)
--- NOTE | 2017-05-30 12:42 | PD ---
Data Data Last Documented VS Vital Signs Date Time Temp Pulse Resp B/P (MAP) Pulse Ox O2 Delivery O2 Flow Rate FiO2 05/30/17 10:01 98.5 78 16 140/85 (103) 98 Orders Orders Complete Blood Count With Diff (05/30/17 10:43) Comprehensive Metabolic Panel (05/30/17 10:43) Lipase (05/30/17 10:43) Iv Access Insert/Monitor (05/30/17 10:43) Ecg Monitoring (05/30/17 10:43) Oximetry (05/30/17 10:43) Ondansetron Inj (Zofran Inj) (05/30/17 10:45) Sodium Chlor 0.9% 1000 Ml Inj (Ns 1000 M (05/30/17 10:43) Sodium Chloride 0.9% Flush (Ns Flush) (05/30/17 10:45) Metoclopramide Inj (Reglan Inj) (05/30/17 11:15) Ed Discharge Order (05/30/17 12:34) Labs Laboratory Tests Test 05/30/17 10:23 White Blood Count 6.6 TH/MM3 Red Blood Count 4.78 MIL/MM3 Hemoglobin 14.6 GM/DL Hematocrit 43.4 % Mean Corpuscular Volume 90.9 FL Mean Corpuscular Hemoglobin 30.6 PG Mean Corpuscular Hemoglobin Concent 33.7 % Red Cell Distribution Width 13.6 % Platelet Count 323 TH/MM3 Mean Platelet Volume 7.1 FL Neutrophils (%) (Auto) 46.5 % Lymphocytes (%) (Auto) 46.1 % Monocytes (%) (Auto) 5.3 % Eosinophils (%) (Auto) 1.5 % Basophils (%) (Auto) 0.6 % Neutrophils # (Auto) 3.1 TH/MM3 Lymphocytes # (Auto) 3.0 TH/MM3 Monocytes # (Auto) 0.3 TH/MM3 Eosinophils # (Auto) 0.1 TH/MM3 Basophils # (Auto) 0.0 TH/MM3 CBC Comment DIFF FINAL Differential Comment Blood Urea Nitrogen 13 MG/DL Creatinine 0.96 MG/DL Random Glucose 82 MG/DL Total Protein 8.3 GM/DL Albumin 4.5 GM/DL Calcium Level 9.2 MG/DL Alkaline Phosphatase 69 U/L Aspartate Amino Transf (AST/SGOT) 25 U/L Alanine Aminotransferase (ALT/SGPT) 46 U/L Total Bilirubin 0.3 MG/DL Sodium Level 140 MEQ/L Potassium Level 4.3 MEQ/L Chloride Level 109 MEQ/L Carbon Dioxide Level 23.1 MEQ/L Anion Gap 8 MEQ/L Estimat Glomerular Filtration Rate 115 ML/MIN Lipase 256 U/L MDM Supervised Visit with AGUSTINA: Yes Narrative Course The history, exam, and medical decision-making in the associated midlevel provider note were completed with my assistance. I reviewed and agree with the findings presented. I attest that I had a [id number] encounter with the patient on the same day, and personally performed and documented my assessment and findings in the medical record. *My assessment and Findings: This is a 27-year-old male who presents to the emergency department with nausea and vomiting. This started last evening and has persisted throughout this morning. He's had this happen to him multiple times before and has been in the emergency department several times for this. He does smoke marijuana which I suspect is the etiology of his symptoms. He feels much better after antiemetics and IV fluids. He has a benign exam. Patient will be discharged home. Diagnosis Primary Impression: Cannabis hyperemesis syndrome concurrent with and due to cannabis abuse Referrals: Primary Care Physician call for appointment Patient Instructions: General Instructions, Acute Nausea and Vomiting (ED) Additional Instruction: Take Zofran as directed as needed for nausea/vomiting. Stop smoking marijuana as this most likely the source of vomiting. Follow-up with your primary care physician. Return to the emergency department for any acute worsening of symptoms. Scripts Ondansetron Odt (Ondansetron Odt) 4 Mg Tab 4 MG SL Q6HR Y for Nausea/Vomiting, #16 TAB 0 Refills Prov: Nicole Sood TYLER 05/30/17 Disposition: 01 DISCHARGE HOME Condition: Stable Jesi Lai MD May 30, 2017 12:42
[2017-05-30 13:19] VITALS: BP 105/68; PULSE 77; RESP 18; O2SAT 98
== END 2017-05-30 13:24 | disposition home or self-care (01) ==
LOC: NEPC 10:00
DX: R11.2 Nausea with vomiting, unspecified (principal); F12.10 Cannabis abuse, uncomplicated; K21.9 Gastro-esophageal reflux disease without esophagitis; F17.200 Nicotine dependence, unspecified, uncomplicated; Z88.0 Allergy status to penicillin
CPT/HCPCS: 80053; 83690; 85025; 96374; 96375; 99284; J2405; J2765; J7030

== ENCOUNTER 2017-06-14 09:29 | Emergency (ER) | payer SELFPAY ==
[~2017-06-14] VITALS: Ht 170.2 cm; Wt 75.0 kg
[~2017-06-14 09:29] MED LIST changes: +ONDA4TAB7 SL; -PROM25TA5 PO; -PROT40TA PO; -ZOFR4TAB PO; -ZOFR4TAB3 SL
[2017-06-14 09:30] VITALS: BP 137/97; PULSE 77; RESP 18; TEMP 97.9; O2SAT 97
[2017-06-14] MEDS ORDERED: SODIUM CHLOR 0.9% 1000 ML INJ 1,000 ML IV ONE ×2 (09:38→11:00)
[2017-06-14] MEDS ORDERED: ONDANSETRON HCL 4 MG/2 ML VIAL IV PUSH ONE (09:45)
[2017-06-14] MEDS ORDERED: SODIUM CHLORIDE 0.9% FLUSH 10 ML FLUSH IVF PRN (09:45)
[2017-06-14] MEDS ORDERED: PROMETHAZINE INJ 25 MG/ML VIAL IM ONE (09:45)
[2017-06-14 10:02] VITALS: BP 120/72; PULSE 70; RESP 18; TEMP 97.6; O2SAT 100
[2017-06-14 10:18] LABS: AUTOMATED NEUTROPHIL # 4.5 TH/MM3 (1.8-7.7); BASOPHIL % 0.4 % (0.0-2.0); EOSINOPHIL % 0.3 % (0.0-4.0); HEMATOCRIT 42.1 % (39.0-51.0); HEMOGLOBIN 14.5 GM/DL (13.0-17.0); LYMPHOCYTE # 2.4 TH/MM3 (1.0-4.8); MEAN CELL VOLUME 90.8 FL (80.0-100.0); MEAN CORPUSCULAR HEMOGLOBIN 31.2 PG (27.0-34.0); MEAN CORPUSCULAR HGB CONC 34.4 % (32.0-36.0); MEAN PLATELET VOLUME 7.1 FL (7.0-11.0); MONO % 3.9 % (0.0-8.0); MONOCYTE # 0.3 TH/MM3 (0-0.9); NEUT % 62.4 % (16.0-70.0); PLATELET COUNT 326 TH/MM3 (150-450); RED BLOOD COUNT 4.63 MIL/MM3 (4.50-5.90); RED CELL DISTRIBUTION WIDTH 13.7 % (11.6-17.2); WHITE BLOOD COUNT 7.2 TH/MM3 (4.0-11.0)
--- NOTE | 2017-06-14 10:37 | PD ---
HPI Chief Complaint: GI Complaint Time Seen by Provider: 09:47 Travel History International Travel<30 days: No Contact w/Intl Traveler<30days: No Traveled to known affect area: No History of Present Illness HPI Patient is a 27-year-old male presenting to the emergency room evaluation of nausea and vomiting. Patient states he started vomiting at 8 p.m. last night. His symptoms started abruptly. He denies any alcohol intake or contaminated foods. He denies any fever, chills, abdominal pain, diarrhea, constipation. He does report feeling sweaty and shaky at times. Patient has been attempting to sip water but cannot tolerate any food or fluids. He denies any significant past medical history. Patient further denies any pain at this time. PFSH Past Medical History Medical History: Denies Significant Hx Diminished Hearing: No Gastrointestinal Disorders: Yes (gastritis ) GERD: Yes Immunizations Current: Yes Tetanus Vaccination: Unknown Influenza Vaccination: No Past Surgical History Surgical History: No Previous Surgery Social History Alcohol Use: Yes (occ) Tobacco Use: Yes (1 PPD) Substance Use: Yes (THC frequently) Allergies-Medications (Allergen,Severity, Reaction): Coded Allergies: amoxicillin (Unverified Allergy, Severe, 06/14/17) Reported Meds & Prescriptions Reported Meds & Active Scripts Active Phenergan (Promethazine HCl) 25 Mg Tablet 25 Mg PO Q6H PRN Ondansetron Odt 4 Mg Tab 4 Mg SL Q6HR PRN Review of Systems Except as stated in HPI: all other systems reviewed are Neg General / Constitutional: No: Fever, Chills HENT: No: Headaches Cardiovascular: No: Chest Pain or Discomfort Respiratory: No: Shortness of Breath Gastrointestinal: Positive: Nausea, Vomiting, No: Diarrhea, Abdominal Pain Genitourinary: No: Dysuria Musculoskeletal: No: Myalgias Physical Exam Narrative GENERAL: Well-developed, well-nourished, alert. Appears uncomfortable, in no acute distress. Actively dry heaving SKIN: Warm and dry. HEAD: Atraumatic. Normocephalic. EYES: Pupils equal and round. No scleral icterus. No injection or drainage. ENT: No nasal bleeding or discharge. Mucous membranes pink and moist. NECK: Trachea midline. No JVD. CARDIOVASCULAR: Regular rate and rhythm. RESPIRATORY: No accessory muscle use. Clear to auscultation. Breath sounds equal bilaterally. GASTROINTESTINAL: Abdomen soft, non-tender, nondistended. Hepatic and splenic margins not palpable. MUSCULOSKELETAL: Extremities without clubbing, cyanosis, or edema. No obvious deformities. NEUROLOGICAL: Awake and alert. No obvious cranial nerve deficits. Motor grossly within normal limits. Five out of 5 muscle strength in the arms and legs. Normal speech. PSYCHIATRIC: Appropriate mood and affect; insight and judgment normal. Data Data Last Documented VS Vital Signs Date Time Temp Pulse Resp B/P (MAP) Pulse Ox O2 Delivery O2 Flow Rate FiO2 06/14/17 10:02 97.6 70 18 120/72 (88) 100 Room Air Orders Orders Complete Blood Count With Diff (06/14/17 09:38) Comprehensive Metabolic Panel (06/14/17 09:38) Lipase (06/14/17 09:38) Iv Access Insert/Monitor (06/14/17 09:38) Ecg Monitoring (06/14/17 09:38) Oximetry (06/14/17 09:38) Ondansetron Inj (Zofran Inj) (06/14/17 09:45) Sodium Chlor 0.9% 1000 Ml Inj (Ns 1000 M (06/14/17 09:38) Sodium Chloride 0.9% Flush (Ns Flush) (06/14/17 09:45) Promethazine Inj (Phenergan Inj) (06/14/17 09:45) Prochlorperazine Inj (Compazine Inj) (06/14/17 10:45) Diphenhydramine Inj (Benadryl Inj) (06/14/17 10:45) Sodium Chlor 0.9% 1000 Ml Inj (Ns 1000 M (06/14/17 11:00) Ed Discharge Order (06/14/17 12:05) Labs Laboratory Tests Test 06/14/17 09:55 White Blood Count 7.2 TH/MM3 Red Blood Count 4.63 MIL/MM3 Hemoglobin 14.5 GM/DL Hematocrit 42.1 % Mean Corpuscular Volume 90.8 FL Mean Corpuscular Hemoglobin 31.2 PG Mean Corpuscular Hemoglobin Concent 34.4 % Red Cell Distribution Width 13.7 % Platelet Count 326 TH/MM3 Mean Platelet Volume 7.1 FL Neutrophils (%) (Auto) 62.4 % Lymphocytes (%) (Auto) 33.0 % Monocytes (%) (Auto) 3.9 % Eosinophils (%) (Auto) 0.3 % Basophils (%) (Auto) 0.4 % Neutrophils # (Auto) 4.5 TH/MM3 Lymphocytes # (Auto) 2.4 TH/MM3 Monocytes # (Auto) 0.3 TH/MM3 Eosinophils # (Auto) 0.0 TH/MM3 Basophils # (Auto) 0.0 TH/MM3 CBC Comment DIFF FINAL Differential Comment Blood Urea Nitrogen 15 MG/DL Creatinine 0.91 MG/DL Random Glucose 100 MG/DL Total Protein 8.5 GM/DL Albumin 4.3 GM/DL Calcium Level 9.1 MG/DL Alkaline Phosphatase 79 U/L Aspartate Amino Transf (AST/SGOT) 26 U/L Alanine Aminotransferase (ALT/SGPT) 49 U/L Total Bilirubin 0.4 MG/DL Sodium Level 141 MEQ/L Potassium Level 4.1 MEQ/L Chloride Level 106 MEQ/L Carbon Dioxide Level 24.7 MEQ/L Anion Gap 10 MEQ/L Estimat Glomerular Filtration Rate 122 ML/MIN Lipase 281 U/L [facility] Medical Decision Making Medical Screen Exam Complete: Yes Emergency Medical Condition: Yes Interpretation(s) Laboratory Tests Test 06/14/17 09:55 White Blood Count 7.2 TH/MM3 Red Blood Count 4.63 MIL/MM3 Hemoglobin 14.5 GM/DL Hematocrit 42.1 % Mean Corpuscular Volume 90.8 FL Mean Corpuscular Hemoglobin 31.2 PG Mean Corpuscular Hemoglobin Concent 34.4 % Red Cell Distribution Width 13.7 % Platelet Count 326 TH/MM3 Mean Platelet Volume 7.1 FL Neutrophils (%) (Auto) 62.4 % Lymphocytes (%) (Auto) 33.0 % Monocytes (%) (Auto) 3.9 % Eosinophils (%) (Auto) 0.3 % Basophils (%) (Auto) 0.4 % Neutrophils # (Auto) 4.5 TH/MM3 Lymphocytes # (Auto) 2.4 TH/MM3 Monocytes # (Auto) 0.3 TH/MM3 Eosinophils # (Auto) 0.0 TH/MM3 Basophils # (Auto) 0.0 TH/MM3 CBC Comment DIFF FINAL Differential Comment Blood Urea Nitrogen 15 MG/DL Creatinine 0.91 MG/DL Random Glucose 100 MG/DL Total Protein 8.5 GM/DL Albumin 4.3 GM/DL Calcium Level 9.1 MG/DL Alkaline Phosphatase 79 U/L Aspartate Amino Transf (AST/SGOT) 26 U/L Alanine Aminotransferase (ALT/SGPT) 49 U/L Total Bilirubin 0.4 MG/DL Sodium Level 141 MEQ/L Potassium Level 4.1 MEQ/L Chloride Level 106 MEQ/L Carbon Dioxide Level 24.7 MEQ/L Anion Gap 10 MEQ/L Estimat Glomerular Filtration Rate 122 ML/MIN Lipase 281 U/L Vital Signs Date Time Temp Pulse Resp B/P (MAP) Pulse Ox O2 Delivery O2 Flow Rate FiO2 06/14/17 10:02 97.6 70 18 120/72 (88) 100 Room Air 06/14/17 10:00 18 06/14/17 09:30 97.9 77 18 137/97 (110) 97 Room Air Differential Diagnosis Gastroenteritis versus foodborne illness versus metabolic abnormality versus viral syndrome versus other Narrative Course Patient is a 27-year-old male that presented to the emergency department for evaluation of nausea and vomiting. Patient's vital signs are stable, labs ordered and pending. Abdominal exam is benign. IV access established, anti- emetics ordered. Labs reviewed, no acute findings identified. Patient was initially given Zofran and Phenergan for nausea as well as a liter of IV fluids. He was reassessed and continued to report nausea, he was then given Benadryl and Compazine. 1120-patient was reassessed, he reports feeling much better. A second liter of IV fluids was given. 1200-reassessed, he was able tolerate fluids. He is observed currently sleeping. Patient will be discharged home with antiemetic medication. Encouraged to maintain a bland, low residue diet, increasing as tolerated. He was encouraged to follow-up with primary care and/or return to the emergency department for any new or worsening symptoms. He verbalized understanding of instructions. Patient stable for discharge. Diagnosis Primary Impression: Nausea & vomiting Qualified Codes: R11.2 - Nausea with vomiting, unspecified Referrals: Primary Care Physician 3 days Patient Instructions: Acute Nausea and Vomiting (ED), General Instructions Additional Instructions: Follow-up with your primary doctor Maintain a bland, easy to digest diet, increase as tolerated Take medications as needed and as directed Return to emergency department for any new or worsening symptoms Med/Other Pt SpecificInfo: Prescription(s) given Scripts Promethazine (Phenergan) 25 Mg Tablet 25 MG PO Q6H Y for NAUSEA OR VOMITING, #15 TAB 0 Refills Prov: Mariteta Locke 06/14/17 Disposition: 01 DISCHARGE HOME Condition: Stable Marietta Locke Jun 14, 2017 10:37
[2017-06-14 10:38] LABS: ALBUMIN 4.3 GM/DL (3.4-5.0); AST (GOT) 26 U/L (15-37); BICARBONATE 24.7 MEQ/L (21.0-32.0); BLOOD UREA NITROGEN 15 MG/DL (7-18); CALCIUM 9.1 MG/DL (8.5-10.1); CHLORIDE 106 MEQ/L (98-107); CREATININE 0.91 MG/DL (0.60-1.30); GLOMERULAR FILTRATION RATE 122 ML/MIN (>89); GLUCOSE,RANDOM 100 MG/DL (74-106); LIPASE 281 U/L (73-393); SODIUM (NA) 141 MEQ/L (136-145)
[2017-06-14 10:42] LABS: ALKALINE PHOSPHATASE 79 U/L (45-117); ALT (GPT) 49 U/L (12-78); TOTAL BILIRUBIN ADULT 0.4 MG/DL (0.2-1.0); TOTAL PROTEIN 8.5 GM/DL (6.4-8.2)
[2017-06-14] MEDS ORDERED: PROCHLORPERAZINE INJ 10 MG/2 ML VIAL IV PUSH ONE (10:45)
[2017-06-14] MEDS ORDERED: diphenhydrAMINE HCL 50 MG/ML VIAL IV PUSH ONE (10:45)
[2017-06-14] MEDS ORDERED: PROM25TA10 PO (11:38)
[2017-06-14 12:58] VITALS: BP 110/68
== END 2017-06-14 12:59 | disposition home or self-care (01) ==
LOC: NEPD 09:29
DX: R11.2 Nausea with vomiting, unspecified (principal); K21.9 Gastro-esophageal reflux disease without esophagitis; F17.200 Nicotine dependence, unspecified, uncomplicated; F12.90 Cannabis use, unspecified, uncomplicated
CPT/HCPCS: 80053; 83690; 85025; 96361; 96372; 96374; 96375; 99284; J0780; J1200; J2405; J2550; J7030

== ENCOUNTER 2017-07-04 09:03 | Emergency (ER) | payer SELFPAY ==
[2017-07-04] MEDS ORDERED: SODIUM CHLORIDE 0.9% FLUSH 10 ML FLUSH IVF (09:30)
[2017-07-04] MEDS: PROMETHAZINE INJ 25 MG/ML VIAL IM (09:30)
[2017-07-04] MEDS: ONDANSETRON HCL 4 MG/2 ML VIAL IV PUSH (09:30)
[2017-07-04] MEDS: SODIUM CHLOR 0.9% 1000 ML INJ 1,000 ML IV (09:32)
[2017-07-04 09:47] LABS: AUTOMATED NEUTROPHIL # 3.8 TH/MM3 (1.8-7.7); BASOPHIL % 0.7 % (0.0-2.0); EOSINOPHIL % 0.4 % (0.0-4.0); HEMATOCRIT 40.7 % (39.0-51.0); HEMO FLAGS DIFF FINAL; HEMOGLOBIN 14.4 GM/DL (13.0-17.0); LYMPH % 41.8 % (9.0-44.0); MEAN CELL VOLUME 90.1 FL (80.0-100.0); MEAN CORPUSCULAR HEMOGLOBIN 31.9 PG (27.0-34.0); MEAN CORPUSCULAR HGB CONC 35.4 % (32.0-36.0); MEAN PLATELET VOLUME 7.4 FL (7.0-11.0); MONO % 4.6 % (0.0-8.0); MONOCYTE # 0.3 TH/MM3 (0-0.9); NEUT % 52.5 % (16.0-70.0); PLATELET COUNT 365 TH/MM3 (150-450); RED BLOOD COUNT 4.51 MIL/MM3 (4.50-5.90); RED CELL DISTRIBUTION WIDTH 13.6 % (11.6-17.2); WHITE BLOOD COUNT 7.2 TH/MM3 (4.0-11.0)
[2017-07-04] MEDS: PROCHLORPERAZINE INJ 10 MG/2 ML VIAL IV PUSH (09:48)
[2017-07-04 10:01] LABS: ALBUMIN 4.3 GM/DL (3.4-5.0); ALT (GPT) 44 U/L (12-78); ANION GAP 8 MEQ/L (5-15); AST (GOT) 26 U/L (15-37); BLOOD UREA NITROGEN 12 MG/DL (7-18); CALCIUM 9.1 MG/DL (8.5-10.1); CHLORIDE 108 MEQ/L (98-107); CREATININE 0.96 MG/DL (0.60-1.30); GLOMERULAR FILTRATION RATE 115 ML/MIN (>89); GLUCOSE,RANDOM 101 MG/DL (74-106); LIPASE 298 U/L (73-393); POTASSIUM 4.2 MEQ/L (3.5-5.1); SODIUM (NA) 141 MEQ/L (136-145)
[2017-07-04 10:04] LABS: ALKALINE PHOSPHATASE 76 U/L (45-117); TOTAL BILIRUBIN ADULT 0.4 MG/DL (0.2-1.0); TOTAL PROTEIN 8.2 GM/DL (6.4-8.2)
== END 2017-07-04 11:00 | disposition home or self-care (01) ==
LOC: NEPD 09:03
DX: R11.2 Nausea with vomiting, unspecified (principal); F12.90 Cannabis use, unspecified, uncomplicated; K21.9 Gastro-esophageal reflux disease without esophagitis; F17.200 Nicotine dependence, unspecified, uncomplicated; R19.7 Diarrhea, unspecified; Z88.0 Allergy status to penicillin; Z87.19 Personal history of other diseases of the digestive system
CPT/HCPCS: 80053; 83690; 85025; 96361; 96374; 96375; 99284-25

== ENCOUNTER 2017-08-26 08:12 | Emergency (ER) | payer SELFPAY ==
[~2017-08-26] VITALS: Ht 172.7 cm; Wt 82.0 kg
[2017-08-26 08:19] VITALS: BP 152/85; PULSE 75; RESP 16; TEMP 98.2; O2SAT 98
--- NOTE | 2017-08-26 08:40 | PD ---
HPI Chief Complaint: GI Complaint Time Seen by Provider: 08:32 Travel History International Travel<30 days: No Contact w/Intl Traveler<30days: No Traveled to known affect area: No History of Present Illness HPI 27yo M with PMH of cannabis use presents to the ED with c/o nausea and vomiting for 2 days. Said he was drinking alcohol 2 days ago and has been vomiting since. States there is some blood in his vomit now. Denies any fever, chest pain, sob, focal weakness or numbness. Pt has been here for vomiting multiple times before. States he has epigastric abdominal pain. PFSH Past Medical History Diminished Hearing: No Gastrointestinal Disorders: Yes (gastritis ) GERD: Yes Immunizations Current: Yes Tetanus Vaccination: > 5 Years Influenza Vaccination: No Past Surgical History Surgical History: No Previous Surgery Social History Alcohol Use: Yes (occ) Tobacco Use: Yes (1/2ppd) Substance Use: Yes (THC frequently) Allergies-Medications (Allergen,Severity, Reaction): Coded Allergies: amoxicillin (Unverified Allergy, Severe, 08/26/17) Reported Meds & Prescriptions Reported Meds & Active Scripts Active No Active Prescriptions or Reported Medications Review of Systems Except as stated in HPI: all other systems reviewed are Neg Physical Exam Narrative GENERAL: 27yo M in mild distress. SKIN: Focused skin assessment warm/dry. HEAD: Atraumatic. Normocephalic. EYES: Pupils equal and round. No scleral icterus. No injection or drainage. ENT: No nasal bleeding or discharge. Mucous membranes pink and moist. NECK: Trachea midline. No JVD. CARDIOVASCULAR: Regular rate and rhythm. No murmur appreciated. RESPIRATORY: No accessory muscle use. Clear to auscultation. Breath sounds equal bilaterally. GASTROINTESTINAL: Abdomen soft, non-tender, nondistended. No rebound tenderness or guarding. MUSCULOSKELETAL: No obvious deformities. No clubbing. No cyanosis. No edema. NEUROLOGICAL: Awake and alert. No obvious cranial nerve deficits. Motor grossly within normal limits. Normal speech. PSYCHIATRIC: Appropriate mood and affect; insight and judgment normal. Data Data Last Documented VS Vital Signs Date Time Temp Pulse Resp B/P (MAP) Pulse Ox O2 Delivery O2 Flow Rate FiO2 08/26/17 08:19 98.2 75 16 152/85 (107) 98 Orders Orders Ondansetron Inj (Zofran Inj) (08/26/17 08:45) Complete Blood Count With Diff (08/26/17 08:36) Comprehensive Metabolic Panel (08/26/17 08:36) Lipase (08/26/17 08:36) Sodium Chlor 0.9% 1000 Ml Inj (Ns 1000 M (08/26/17 08:45) Chest, Single Ap (08/26/17 ) Labs Laboratory Tests Test 08/26/17 08:40 White Blood Count 9.4 TH/MM3 Red Blood Count 4.75 MIL/MM3 Hemoglobin 14.5 GM/DL Hematocrit 42.9 % Mean Corpuscular Volume 90.2 FL Mean Corpuscular Hemoglobin 30.6 PG Mean Corpuscular Hemoglobin Concent 33.9 % Red Cell Distribution Width 14.0 % Platelet Count 327 TH/MM3 Mean Platelet Volume 7.0 FL Neutrophils (%) (Auto) 74.0 % Lymphocytes (%) (Auto) 21.1 % Monocytes (%) (Auto) 4.5 % Eosinophils (%) (Auto) 0.1 % Basophils (%) (Auto) 0.3 % Neutrophils # (Auto) 7.0 TH/MM3 Lymphocytes # (Auto) 2.0 TH/MM3 Monocytes # (Auto) 0.4 TH/MM3 Eosinophils # (Auto) 0.0 TH/MM3 Basophils # (Auto) 0.0 TH/MM3 CBC Comment DIFF FINAL Differential Comment Blood Urea Nitrogen 12 MG/DL Creatinine 0.99 MG/DL Random Glucose 95 MG/DL Total Protein 8.3 GM/DL Albumin 4.5 GM/DL Calcium Level 9.3 MG/DL Alkaline Phosphatase 71 U/L Aspartate Amino Transf (AST/SGOT) 24 U/L Alanine Aminotransferase (ALT/SGPT) 44 U/L Total Bilirubin 0.4 MG/DL Sodium Level 140 MEQ/L Potassium Level 4.2 MEQ/L Chloride Level 104 MEQ/L Carbon Dioxide Level 25.8 MEQ/L Anion Gap 10 MEQ/L Estimat Glomerular Filtration Rate 111 ML/MIN Lipase 177 U/L [facility] Medical Decision Making Medical Screen Exam Complete: Yes Emergency Medical Condition: Yes Differential Diagnosis Gastroenteritis vs. viral syndrome vs. dehydration vs. electrolyte abnormality Narrative Course 27yo M with nausea and vomiting for 2 days. No abdominal pain on exam. Labs reviewed, no leukocytosis. H/H normal. CMP unremarkable. Lipase normal. CXR showed no free intraperitoneal air. No acute cardiopulmonary disease. Pt given NS IVF and zofran. Reevaluated at bedside and feels much better. No longer nauseous and tolerating PO. Return precautions given. Diagnosis Primary Impression: Nausea & vomiting Qualified Codes: R11.2 - Nausea with vomiting, unspecified Patient Instructions: General Instructions Departure Forms: Tests/Procedures Additional Instructions: Please follow up with your primary care physician in 2-3 days. Return precautions given. Med/Other Pt SpecificInfo: No Change to Meds Scripts No Active Prescriptions or Reported Meds Disposition: 01 DISCHARGE HOME Condition: Stable Kathy oBlivar Aug 26, 2017 08:40
[2017-08-26] MEDS ORDERED: SODIUM CHLOR 0.9% 1000 ML INJ 1,000 ML IV ONE (08:45)
[2017-08-26] MEDS ORDERED: ONDANSETRON HCL 4 MG/2 ML VIAL IV PUSH ONE (08:45)
[2017-08-26 08:50] LABS: BASOPHIL % 0.3 % (0.0-2.0); EOSINOPHIL % 0.1 % (0.0-4.0); HEMATOCRIT 42.9 % (39.0-51.0); HEMOGLOBIN 14.5 GM/DL (13.0-17.0); LYMPH % 21.1 % (9.0-44.0); MEAN CELL VOLUME 90.2 FL (80.0-100.0); MEAN CORPUSCULAR HEMOGLOBIN 30.6 PG (27.0-34.0); MEAN CORPUSCULAR HGB CONC 33.9 % (32.0-36.0); MONO % 4.5 % (0.0-8.0); MONOCYTE # 0.4 TH/MM3 (0-0.9); PLATELET COUNT 327 TH/MM3 (150-450); RED BLOOD COUNT 4.75 MIL/MM3 (4.50-5.90); WHITE BLOOD COUNT 9.4 TH/MM3 (4.0-11.0)
--- NOTE | 2017-08-26 08:57 | RADRPT ---
EXAM DATE/TIME: 08/26/2017 08:45 [facility] COMPARISON: CHEST SINGLE AP, August 31, 2015, 12:04. INDICATIONS : Evaluate for free air, vomiting abdomen pain MEDICAL HISTORY : None. SURGICAL HISTORY : None. ENCOUNTER: Initial ACUITY: 3 days PAIN SCORE: 0/10 LOCATION: chest FINDINGS: A single view of the chest demonstrates the lungs to be symmetrically aerated without evidence of mas s, infiltrate or effusion. The cardiomediastinal contours are unremarkable. Osseous structures are intact. No free intraperitoneal air is noted. CONCLUSION: 1. No free intraperitoneal air. 2. No acute cardiopulmonary disease. Devaughn Mora MD on August 26, 2017 at 8:53 Board Certified Radiologist. This report was verified electronically.
[2017-08-26 09:10] LABS: ALBUMIN 4.5 GM/DL (3.4-5.0); ALT (GPT) 44 U/L (12-78); AST (GOT) 24 U/L (15-37); BICARBONATE 25.8 MEQ/L (21.0-32.0); BLOOD UREA NITROGEN 12 MG/DL (7-18); CALCIUM 9.3 MG/DL (8.5-10.1); CHLORIDE 104 MEQ/L (98-107); CREATININE 0.99 MG/DL (0.60-1.30); GLOMERULAR FILTRATION RATE 111 ML/MIN (>89); GLUCOSE,RANDOM 95 MG/DL (74-106); SODIUM (NA) 140 MEQ/L (136-145)
[2017-08-26 09:12] LABS: ALKALINE PHOSPHATASE 71 U/L (45-117); TOTAL BILIRUBIN ADULT 0.4 MG/DL (0.2-1.0); TOTAL PROTEIN 8.3 GM/DL (6.4-8.2)
[2017-08-26 11:21] VITALS: BP 134/71
== END 2017-08-26 11:31 | disposition home or self-care (01) ==
LOC: NEPC 08:12
DX: R11.2 Nausea with vomiting, unspecified (principal); K21.9 Gastro-esophageal reflux disease without esophagitis; F17.200 Nicotine dependence, unspecified, uncomplicated; F12.90 Cannabis use, unspecified, uncomplicated
CPT/HCPCS: 71045; 80053; 83690; 85025; 96361; 96374; 99284; J2405; J7030

== ENCOUNTER 2017-10-30 10:27 | Emergency (ER) | payer SELFPAY ==
[~2017-10-30] VITALS: Ht 172.7 cm; Wt 70.0 kg
[2017-10-30 10:35] VITALS: BP 136/77; PULSE 55; RESP 20; TEMP 97.6; O2SAT 98
[2017-10-30] MEDS ORDERED: PROCHLORPERAZINE INJ 10 MG/2 ML VIAL IV PUSH ONE (11:00)
[2017-10-30] MEDS ORDERED: SODIUM CHLOR 0.9% 1000 ML INJ 1,000 ML IV ONE (11:00)
[2017-10-30] MEDS ORDERED: diphenhydrAMINE HCL 50 MG/ML VIAL IV PUSH ONE (11:00)
--- NOTE | 2017-10-30 11:54 | PD ---
HPI . Vomiting Chief Complaint: GI Complaint Time Seen by Provider: 10:48 Travel History International Travel<30 days: No Contact w/Intl Traveler<30days: No Traveled to known affect area: No History of Present Illness HPI Patient presents with a chief complaint of vomiting. Onset was last night. No diarrhea. No abdominal pain. Symptoms have been continuous and mild to moderate. This patient has been seen here on numerous previous occasions for vomiting. He has a history of marijuana abuse. He states that he last used marijuana about 2 days ago. He last drank 1 day ago. He states that he did not have that much to drink. PFSH Past Medical History Medical History: Denies Significant Hx Diminished Hearing: No Gastrointestinal Disorders: Yes (gastritis ) GERD: Yes Immunizations Current: Yes Past Surgical History Surgical History: No Previous Surgery Social History Alcohol Use: Yes (occ) Tobacco Use: Yes (1/2ppd) Substance Use: Yes (THC frequently) Allergies-Medications (Allergen,Severity, Reaction): Coded Allergies: amoxicillin (Unverified Allergy, Severe, 10/30/17) Reported Meds & Prescriptions Reported Meds & Active Scripts Active No Active Prescriptions or Reported Medications Review of Systems Except as stated in HPI: all other systems reviewed are Neg Physical Exam Narrative GENERAL: Awake and alert and in no acute distress. SKIN: Warm and dry. HEAD: Normocephalic/atraumatic. EYES: Pupils are equal. Extraocular movements are intact. NECK: Normal range of motion. CARDIOVASCULAR: Regular rate and rhythm. RESPIRATORY: Nonlabored respirations. ABDOMEN: Soft. MUSCULOSKELETAL: Atraumatic. NEUROLOGICAL: Nonfocal. PSYCHIATRIC: Appropriate mood and affect. Data Data Last Documented VS Vital Signs Date Time Temp Pulse Resp B/P (MAP) Pulse Ox O2 Delivery O2 Flow Rate FiO2 10/30/17 10:35 97.6 55 20 136/77 (96) 98 Orders Orders ^ Saline Lock (10/30/17 10:50) Diphenhydramine Inj (Benadryl Inj) (10/30/17 11:00) Prochlorperazine Inj (Compazine Inj) (10/30/17 11:00) Sodium Chlor 0.9% 1000 Ml Inj (Ns 1000 M (10/30/17 11:00) MDM Medical Decision Making Medical Screen Exam Complete: Yes Emergency Medical Condition: Yes Medical Record Reviewed: Yes (Multiple previous visits for similar complaints) Differential Diagnosis Differential diagnosis includes but is not limited to viral gastritis, food poisoning, pancreatitis, pneumonia, hepatitis, acute coronary syndrome, Narrative Course This patient presents with nausea and vomiting. He has had numerous previous similar presentations. He has been treated here with IV fluids and IV Compazine and Benadryl. He reports improvement in his symptoms. He is now stable for discharge to home. Diagnosis Primary Impression: Nausea & vomiting Qualified Codes: R11.2 - Nausea with vomiting, unspecified Scripts No Active Prescriptions or Reported Meds Disposition: DISCHARGE HOME Condition: Stable Samantha Gilbert MD October 30, 2017 11:54
== END 2017-10-30 12:09 | disposition home or self-care (01) ==
LOC: NEPD 10:27
DX: R11.2 Nausea with vomiting, unspecified (principal); F17.200 Nicotine dependence, unspecified, uncomplicated
CPT/HCPCS: 96361; 96374; 96375; 99284; J0780; J1200; J7030